=== PATIENT | male | born 1950 | race Caucasian/White ===

== ENCOUNTER 2022-01-07 13:24 | Emergency (ER) | payer BC, MEDICARE ==
[2022-01-07 13:36] VITALS: PULSE 93
[2022-01-07 13:37] VITALS: BP 176/102
[2022-01-07] MEDS ORDERED: Cyclobenzaprine 10 MG Tab PO ONE (13:51)
[2022-01-07] MEDS ORDERED: HYDROmorphone 1 MG/ML Syringe IM ONE (13:51)
== END 2022-01-07 15:51 | disposition home or self-care (01) ==
LOC: JD.ED 13:24
DX: M54.50 Low back pain, unspecified (principal); I10 Essential (primary) hypertension
CPT/HCPCS: 72100; 96372; 99283; A9270; J1170

== ENCOUNTER 2022-07-21 11:43 | Inpatient (IN) | payer MEDICARE ==
[2022-07-21] MEDS ORDERED: Sodium Chloride 0.9% 10 ML Syringe FLUSH PRN ×2 (12:10→12:18)
[2022-07-21] MEDS ORDERED: Iopamidol 755 Mg/ML 100 ML Bottle IVPUSH ONE (12:18)
[2022-07-21] MEDS ORDERED: HYDROmorphone 0.5 MG/0.5 ML Syringe IVPUSH ONE (12:23)
[2022-07-21] MEDS ORDERED: Sodium Chloride 0.9% 100 ML IV SCH (12:30)
[2022-07-21 12:39] LABS: BASOPHILS ABSOLUTE AUTO 0.03 K/mm3 (0.01-0.08); BASOPHILS PERCENT AUTO 0.3 % (0.1-1.2); EOSINOPHILS PERCENT AUTO 1.1 (0.8-7.0); HEMOGLOBIN 14.9 gm/dl (13.7-17.5); IMMATURE GRAN ABSOLUTE AUTO 0.03 K/mm3 (0.00-0.10); IMMATURE GRAN PERCENT AUTO 0.3 % (<=1.0); LYMPHOCYTES ABSOLUTE AUTO 0.76 K/mm3 (1.32-3.57); LYMPHOCYTES PERCENT AUTO 8.4 % (21.8-53.1); MEAN CORPUSCULAR HEMOGLOBIN 31.1 pg (25.7-32.2); MEAN CORPUSCULAR HGB CONC 32.4 g/dl (32.2-35.5); MEAN PLATELET VOLUME 9.8 fl (9.4-12.3); MONOCYTES ABSOLUTE AUTO 1.09 K/mm3 (0.30-0.82); NEUTROPHILS ABSOLUTE AUTO 7.06 K/mm3 (1.78-5.38); NEUTROPHILS PERCENT AUTO 77.9 % (34.0-67.9); PLATELET COUNT,PLT 177 K/mm3 (163-337); RED BLOOD CELL COUNT 4.79 M/mm3 (4.63-6.08); WHITE BLOOD CELL COUNT,WBC 9.07 K/mm3 (4.23-9.07)
[2022-07-21 12:55] LABS: INR 1.02; PROTHROMBIN TIME 10.9 SECONDS (9.7-12.0)
[2022-07-21 13:07] LABS: A/G RATIO 0.8 (1-2); ANION GAP 12.9 (5-15); BUN/CREATININE RATIO 14.5 (14-18); CALCIUM 8.4 mg/dL (8.5-10.1); CREATININE 1.1 mg/dL (0.7-1.3); EST CRCL DRUG DOSING (CG) 63.6 mL/min; POTASSIUM,K 3.9 mEq/L (3.5-5.1); PROTEIN TOTAL,TP 6.7 g/dl (6.4-8.2)
[2022-07-21] MEDS ORDERED: Heparin Sodium 5,000 Units/ML Vial IVPUSH ONE ×2 (13:27→22:52)
[2022-07-21] MEDS: Heparin Sodium/D5W 25,000 UNITS/500 ML BAG IV SCH (13:36)
[2022-07-21 16:06] LABS: LACTATE DEHYDROGENASE,LDH 218 U/L (85-227); TROPONIN I HIGH SENSITIVITY 8 pg/mL (<=76)
[2022-07-21] MEDS ORDERED: Ondansetron 4 MG Tab.DIS PO PRN (16:09)
[2022-07-21] MEDS ORDERED: Docusate Sodium 100 MG Cap PO PRN (16:09)
[2022-07-21] MEDS: traMADol 50 MG Tab PO PRN (19:26)
[2022-07-21] MEDS: HYDROmorphone 1 MG/ML Syringe IVPUSH PRN (21:10)
[2022-07-21] MEDS: Lactated Ringers 1,000 ML IV SCH (21:10)
[2022-07-21] MEDS: Metoclopramide 10 MG/2 ML SDV IVPUSH PRN (21:11)
[2022-07-22] MEDS: traMADol 50 MG Tab PO PRN ×4 (01:35→19:23)
[2022-07-22] MEDS: HYDROmorphone 1 MG/ML Syringe IVPUSH PRN (03:56)
[2022-07-22] MEDS: Metoclopramide 10 MG/2 ML SDV IVPUSH PRN (03:57)
[2022-07-22] MEDS: Acetaminophen 325 MG Tab PO PRN ×3 (07:55→19:23)
[2022-07-22] MEDS: Lisinopril 10 MG Tab PO SCH (08:01)
[2022-07-22] MEDS: Heparin Sodium/D5W 25,000 UNITS/500 ML BAG IV SCH ×2 (08:59→21:31)
[2022-07-22] MEDS: Lactated Ringers 1,000 ML IV SCH ×2 (08:59→16:56)
[2022-07-22] MEDS ORDERED: LEFLUNOMIDE 10 MG PO SCH (09:00)
[2022-07-22] MEDS: oxyCODONE 5 MG Tab PO PRN ×2 (12:30→21:04)
[2022-07-22] MEDS: Lidocaine 4% 1 each Patch TOP PRN (16:55)
[2022-07-23] MEDS: Acetaminophen 325 MG Tab PO PRN ×2 (00:42→06:39)
[2022-07-23] MEDS: Lactated Ringers 1,000 ML IV SCH (03:13)
[2022-07-23] MEDS: oxyCODONE 5 MG Tab PO PRN ×4 (03:14→20:31)
[2022-07-23] MEDS: traMADol 50 MG Tab PO PRN (06:40)
[2022-07-23] MEDS: Lisinopril 10 MG Tab PO SCH (09:44)
[2022-07-23] MEDS: Apixaban 5 MG Tab PO SCH ×2 (11:38→20:31)
[2022-07-23] MEDS: Lidocaine 4% 1 each Patch TOP PRN (18:50)
[2022-07-24] MEDS: oxyCODONE 5 MG Tab PO PRN ×2 (02:33→14:41)
[2022-07-24] MEDS: traMADol 50 MG Tab PO PRN (07:41)
[2022-07-24] MEDS: Apixaban 5 MG Tab PO SCH (08:02)
[2022-07-24] MEDS: Lisinopril 10 MG Tab PO SCH (08:02)
[2022-07-24 16:41] VITALS: BP 114/62; PULSE 98
[2022-07-26 18:41] LABS: FACTOR V LEIDEN See below:
== END 2022-07-24 15:33 | disposition home or self-care (01) | DRG 175 ==
LOC: JD.ED 11:43 → JD.ICU 14:44
PROVIDERS: ADMIT Emergency Medicine; ATTEND Emergency Medicine
DX: I26.92 Saddle embolus of pulmonary artery without acute cor pulmonale (principal); J96.01 Acute respiratory failure with hypoxia; I82.411 Acute embolism and thrombosis of right femoral vein; I82.431 Acute embolism and thrombosis of right popliteal vein; I82.441 Acute embolism and thrombosis of right tibial vein; I10 Essential (primary) hypertension; M54.50 Low back pain, unspecified; Z88.8 Allergy status to other drugs, medicaments and biological substances; Z68.31 Body mass index [BMI] 31.0-31.9, adult; Z79.01 Long term (current) use of anticoagulants; Z79.899 Other long term (current) drug therapy; Z98.1 Arthrodesis status
CPT/HCPCS: 36415; 71275; 80053; 83615; 83880; 84484 ×2; 85025; 85610; 86140; 93005; 93970; 96365; 96366; 96375; 96376; 99285; J1170; J1644 ×2; J3490 ×3; Q9967; 81241; 85300; 85301; 85302; 85306; 85730; 86147; 93010; 94762; 99223; 99232; 99239; A9270-GY; J2765; J7120

== ENCOUNTER 2023-02-02 12:43 | Emergency (ER) | payer MEDICARE ==
[2023-02-02] MEDS ORDERED: Lidocaine 1% 10 ML MDV INJECT ONE (14:19)
[2023-02-02] MEDS ORDERED: Lidocaine 1% 10 ML MDV ONE (14:20)
[2023-02-02] MEDS ORDERED: cefTRIAXone 2 GM in Sodium Chloride 0.9% 100 ML IV ONE (14:56)
[2023-02-02] MEDS ORDERED: Sodium Chloride 0.9% 10 ML Syringe FLUSH PRN (14:56)
[2023-02-02 16:22] VITALS: BP 154/89; PULSE 87
== END 2023-02-02 16:15 | disposition home or self-care (01) ==
LOC: JD.ED 12:43
DX: L02.11 Cutaneous abscess of neck (principal); I10 Essential (primary) hypertension; J45.909 Unspecified asthma, uncomplicated; Z88.2 Allergy status to sulfonamides; Z91.048 Other nonmedicinal substance allergy status; Z79.899 Other long term (current) drug therapy; Z79.01 Long term (current) use of anticoagulants
CPT/HCPCS: 10060; 87070; 87075; 87077; 87186; 87205; 96365; 99283; J0696; J3490

== ENCOUNTER 2023-02-04 10:07 | Emergency (ER) | payer MEDICARE ==
[2023-02-04 16:05] VITALS: BP 132/79; PULSE 91
== END 2023-02-04 11:15 | disposition home or self-care (01) ==
LOC: JD.ED 10:07
DX: L76.82 Other postprocedural complications of skin and subcutaneous tissue (principal); I10 Essential (primary) hypertension; J45.909 Unspecified asthma, uncomplicated; Z79.01 Long term (current) use of anticoagulants; Z79.899 Other long term (current) drug therapy; Z88.2 Allergy status to sulfonamides; Z91.048 Other nonmedicinal substance allergy status
CPT/HCPCS: 99282

== ENCOUNTER 2023-06-13 08:41 | Emergency (ER) | payer MEDICARE ==
[2023-06-13] MEDS: Sodium Chloride 0.9% 10 ML Syringe FLUSH PRN (09:44)
[2023-06-13 09:52] LABS: BASOPHILS PERCENT AUTO 0.3 % (0.0-1.0); EOSINOPHILS PERCENT AUTO 0.3 % (0.0-6.0); HEMATOCRIT 43.4 % (42.0-52.0); IMMATURE GRAN ABSOLUTE AUTO 0.04 K/mm3 (0.00-0.05); IMMATURE GRAN PERCENT AUTO 0.6 % (0.0-0.4); LYMPHOCYTES ABSOLUTE AUTO 0.4 K/mm3 (1.0-4.8); LYMPHOCYTES PERCENT AUTO 5.2 % (24.0-44.0); MEAN CORPUSCULAR HEMOGLOBIN 30.5 pg (28.0-32.0); MEAN CORPUSCULAR HGB CONC 32.7 g/dl (32.0-36.0); MEAN PLATELET VOLUME 8.6 fl (9.4-12.4); MONOCYTES ABSOLUTE AUTO 0.8 K/mm3 (0.0-0.8); MONOCYTES PERCENT AUTO 11.6 % (0.0-8.0); NEUTROPHILS ABSOLUTE AUTO 5.6 K/mm3 (1.8-7.7); RED BLOOD CELL COUNT 4.66 M/mm3 (4.52-5.90); WHITE BLOOD CELL COUNT,WBC 6.79 K/mm3 (3.9-11.3)
[2023-06-13 09:54] LABS: HEMOGLOBIN 14.2 gm/dl (14.0-18.0); MEAN CORPUSCULAR VOLUME 93.1 fl (83.0-99.0); PLATELET COUNT,PLT 195 K/mm3 (150-400)
[2023-06-13 10:28] LABS: A/G RATIO 0.8 (1-2); ALBUMIN 2.7 g/dl (3.4-5.0); ANION GAP 13.6 (5-15); BILIRUBIN TOTAL 0.7 mg/dL (0.2-1.0); C-REACTIVE PROTEIN 2.72 mg/dL (<0.30); CALCIUM 8.5 mg/dL (8.5-10.1); EST CRCL DRUG DOSING (CG) 69.96 mL/min; POTASSIUM,K 3.6 mEq/L (3.5-5.1); PROTEIN TOTAL,TP 6.2 g/dl (6.4-8.2)
[2023-06-13] MEDS: Iopamidol 612 MG/ML 30 ML SDV IVPUSH ONE (10:45)
[2023-06-13] MEDS: cefTRIAXone 2 GM in Sodium Chloride 0.9% 100 ML IV ONE (12:25)
[2023-06-13] MEDS: Levofloxacin 750 MG Tab PO ONE (14:23)
[2023-06-13 14:42] VITALS: BP 127/87; PULSE 91
== END 2023-06-13 14:38 | disposition home or self-care (01) ==
LOC: JD.ED 08:41
DX: M27.2 Inflammatory conditions of jaws (principal); I10 Essential (primary) hypertension; Z88.2 Allergy status to sulfonamides; Z91.048 Other nonmedicinal substance allergy status
CPT/HCPCS: 36415; 70487; 80053; 85025; 86140; 96365; 99284; A9270; J0696; J3490; Q9967

== ENCOUNTER 2025-01-07 12:24 | Emergency (ER) | payer MEDICARE ==
[2025-01-07] MEDS ORDERED: Sodium Chloride 0.9% 10 ML Syringe FLUSH PRN (12:39)
[2025-01-07 12:48] LABS: BASOPHILS ABSOLUTE AUTO 0.0 K/mm3 (0.0-0.2); BASOPHILS PERCENT AUTO 0.3 % (0.0-1.0); EOSINOPHILS ABSOLUTE AUTO 0.0 K/mm3 (0.0-0.4); EOSINOPHILS PERCENT AUTO 0.3 % (0.0-6.0); IMMATURE GRAN ABSOLUTE AUTO 0.01 K/mm3 (0.00-0.05); IMMATURE GRAN PERCENT AUTO 0.3 % (0.0-0.4); LYMPHOCYTES ABSOLUTE AUTO 0.6 K/mm3 (1.0-4.8); LYMPHOCYTES PERCENT AUTO 17.9 % (24.0-44.0); MEAN PLATELET VOLUME 9.7 fl (9.4-12.4); MONOCYTES ABSOLUTE AUTO 0.4 K/mm3 (0.0-0.8); MONOCYTES PERCENT AUTO 11.2 % (0.0-8.0); NEUTROPHILS ABSOLUTE AUTO 2.3 K/mm3 (1.8-7.7); NEUTROPHILS PERCENT AUTO 70.0 % (41.0-71.0); NRBC ABSOLUTE 0.00 (0.00-0.02); NRBC PERCENT 0.0 % (0.0-0.2); PLATELET COUNT,PLT 197 K/mm3 (150-400); RED BLOOD CELL COUNT 5.38 M/mm3 (4.52-5.90); WHITE BLOOD CELL COUNT,WBC 3.30 K/mm3 (3.9-11.3)
[2025-01-07 13:01] VITALS: BP 99/68; PULSE 35
[2025-01-07 13:12] LABS: A/G RATIO 0.9 (1-2); ALANINE AMINOTRANSFERASE,ALT 27.0 U/L (16-63); ASPARTATE AMNIOTRANSFERASE,AST 35.0 U/L (15-37); BILIRUBIN TOTAL 0.9 mg/dL (0.2-1.0); BLOOD UREA NITROGEN,BUN 16.0 mg/dL (7-18); CARBON DIOXIDE,CO2 26.0 mEq/L (21-32); CHLORIDE,CL 104.0 mEq/L (98-107); CREATININE 1.2 mg/dL (0.7-1.3); EST CRCL DRUG DOSING (CG) 54.83 mL/min; ESTIMATED GFR 64.0 mL/min (>60); GLUCOSE RANDOM 149.0 mg/dL (70-99); POTASSIUM,K 4.5 mEq/L (3.5-5.1); PROTEIN TOTAL,TP 7.6 g/dl (6.4-8.2); SODIUM,NA 139.0 mEq/L (136-145)
[2025-01-07 13:15] LABS: TROPONIN I HIGH SENSITIVITY 770.0 pg/mL (<=76)
[2025-01-07] MEDS ORDERED: Atropine 0.1 MG/ML 10 ML Syringe ONE ×2 (13:15)
[2025-01-07] MEDS ORDERED: DOPamine/Dextrose 5%-Water 400 MG/250 ML BAG IV SCH (13:15)
[2025-01-07] MEDS: fentaNYL 100 MCG/2 ML SDV IVPUSH ONE (13:16)
[2025-01-07] MEDS: fentaNYL 100 MCG/2 ML SDV ONE (13:19)
[2025-01-07] MEDS ORDERED: Ondansetron 4 MG/2 ML SDV ONE (14:01)
[2025-01-07] MEDS ORDERED: Norepinephrine Bit/0.9% NaCl 4 MG/250 ML BAG ONE (14:10)
[2025-01-07] MEDS: Norepinephrine Bit/0.9% NaCl 4 MG/250 ML BAG IV SCH (14:12)
[2025-01-07 16:30] LABS: BASE EXCESS ARTERIAL 6.8 (-2-2.0); BICARBONATE,ARTERIAL 28.4 meq/L (22.0-26.0); O2 SATURATION ARTERIAL 99.7 % (96.0-97.0); PCO2 ARTERIAL 31.0 mmHg (35.0-45.0); PO2 ARTERIAL 210.0 mmHg (80.0-100.0)
== END 2025-01-07 15:00 ==
LOC: JD.ED 12:24
DX: I46.9 Cardiac arrest, cause unspecified (principal); I44.2 Atrioventricular block, complete; I21.4 Non-ST elevation (NSTEMI) myocardial infarction; I10 Essential (primary) hypertension; J45.909 Unspecified asthma, uncomplicated; Z88.2 Allergy status to sulfonamides; Z88.8 Allergy status to other drugs, medicaments and biological substances; Z79.899 Other long term (current) drug therapy
CPT/HCPCS: 36415; 36600; 71045; 80053; 82803; 83735; 84484; 85025; 92950; 92953; 93005; 96365; 96366; 96368; 96375; 96376; 99291; J0168; J0461; J1265; J2250; J2405; J3010; J7030; 93010